=== PATIENT | male | born 1970 | race Caucasian/White ===

== ENCOUNTER → 2016-04-02 | Outpatient (REF) | payer OTHER | LOC: M SMT 17:01 | PROVIDERS: ATTEND Nurse Practitioner Family | DX: N50.819 Testicular pain, unspecified (principal) ==

== ENCOUNTER → 2016-10-01 | Outpatient (CLI) | payer OTHER ==
--- NOTE | 2016-10-01 16:54 | REP ---
Whole body PET CT scan: The study is correlated with the patient's recent CT of the chest dated 08/15/2016. Whole body PET CT scan is performed from skull base to the upper thighs. Neck and supraclavicular areas: There are no hypermetabolic foci. Chest: There are no hypermetabolic foci. The pleural-based 11 mm nodule identified in the right lower lobe on the comparison CT is no longer present on the CT accompanying the PET scan today. This may have been a small focal zone of transient atelectasis on the original CT. There are no foci in the anaid, mediastinum, chest wall or elsewhere in the chest. Abdomen, pelvis and upper thighs: There are no hypermetabolic foci. Impression: There are no hypermetabolic foci. In particular there are no hypermetabolic foci in the chest. The pleural-based lung nodule in the right lower lobe identified on the comparison chest CT is no longer present on the CT accompanying the PET scan today. The study is performed with 10 mCi of F 18 FDG. Signed by Jerel Bolaños MD 10/01/2016 04:45 P
== END ==
LOC: M PLARAD 08:33
PROVIDERS: ATTEND Physician Assistant
DX: R91.1 Solitary pulmonary nodule (principal)